=== PATIENT | female | born 1940 | race Caucasian/White ===

== ENCOUNTER 2016-04-21 11:00 | Inpatient (IN) | payer MEDICARE, OTHER ==
[~2016-04-21] VITALS: Ht 157.5 cm; Wt 78.7 kg
--- NOTE | ~2016-04-21 | OR ---
PATIENT'S NAME: MELANIE HUBBARD [facility] AGE: 75 Y [address] ROOM: [address] [address] LOCATION: [facility] ADMIT DATE: 05/05/2016 OR/Procedure Report DISCHARGE DATE: FAMILY PHYSICIAN: Yady De Los Santos MD ATTENDING PHYSICIAN: STACIA CRESPO SURGEON: Stacia Crespo MD DIE TROUBLE SHOOTER: 1. MAYTE Mccray. 2. Stacia Mata. DATE OF PROCEDURE: 05/05/2016 PREOPERATIVE DIAGNOSES: 1. Right knee degenerative joint disease (primary osteoarthritis). 2. Severe preoperative flexion contracture. POSTOPERATIVE DIAGNOSES: 1. Right knee degenerative joint disease (primary osteoarthritis). 2. Severe preoperative flexion contracture. OPERATION: Right total knee arthroplasty with computer navigation. ANESTHESIA: Spinal anesthesia plus adductor canal block plus periarticular local anesthesia (ropivacaine with epinephrine and Toradol). ESTIMATED BLOOD LOSS: Less than 10 mL. DRAIN: None. SPECIMEN: None. COMPLICATIONS: None. IMPLANT SYSTEM: Balko Triathlon. 1. Size 4 right posterior stabilized femoral component. 2. Size 3 universal modular tibial baseplate. 3. A 9 mm posterior stabilized size 3 X3 tibial polyethylene insert. 4. A 29 mm oval X3 patella component. INDICATIONS FOR SURGERY: Ms. Melanie Hubbard is a 75-year-old female who presents with advanced right knee degenerative joint disease and associated severely compromised activities of daily living. The patient has decided to proceed with knee replacement after having been thoroughly counseled regarding the associated risks, benefits, and limitations. We have specifically reviewed the risks and implications of infection, deep venous thrombosis, pulmonary embolism, mortality, neurovascular complications, blood transfusion (and associated potential for disease transmission or transfusion reaction), PATIENT'S NAME: MELANIE HUBBARD [facility] AGE: 75 Y [address] ROOM: [address] [address] LOCATION: [facility] ADMIT DATE: 05/05/2016 OR/Procedure Report DISCHARGE DATE: FAMILY PHYSICIAN: Yady De Los Santos MD ATTENDING PHYSICIAN: STACIA CRESPO stiffness, instability, mechanical deterioration of the components (due to wear and or loosening), and the potential need for revision. We have also emphasized the importance of active involvement and compliance with post- operative physical therapy as a means of optimizing range of motion and functional recovery. Informed consent has been granted. DESCRIPTION OF PROCEDURE: The patient was positioned supine after administration of anesthesia and prophylactic antibiotics. A well-padded pneumatic tourniquet was placed around the right proximal thigh, and the right lower extremity was prepped and draped with vigilant sterile technique. The patient's name as well as the intended operative side and procedure were confirmed with a verbal time-out involving myself, the circulating nurse, the scrub nurse, and the anesthesiologist. Examination under anesthesia demonstrated no active skin lesions or masses. There was a prominent flexion contracture. There were no significant preexisting scars. There was a mild effusion. There was no erythema. There was no abnormal warmth. Range of motion under anesthesia was from a 20-degree flexion contracture to 120 degrees of flexion. There was no ligamentous insufficiency. The right lower extremity was elevated and exsanguinated with an Esmarch wrap, and the pneumatic tourniquet was inflated to 300mmHg. The knee was approached through a longitudinal midline incision. A medial parapatellar arthrotomy was performed and the patella was everted. Examination of the joint space demonstrated no effusion. There were adhesions in the lateral gutter. There were moderate-sized osteophytes at the intercondylar notch. There were no loose bodies. The cruciate ligaments were intact. There was a large osteophyte at the lateral margin of the patella. There were moderate-sized osteophytes at the superior and inferior margins of the patella. There was full-thickness loss of articular cartilage throughout the lateral 75% of the patella and femoral trochlea articular surfaces with associated longitudinal linear erosions in the subchondral bone yielding a corduroy appearance at the lateral 75% of the patella and femoral trochlea. There were small osteophytes at the medial and lateral femoral condyles. There was a 2 x 3 cm diameter region of high-grade partial-thickness articular cartilage loss at the central aspect of the medial femoral condyle and a 2 cm diameter region of high-grade partial-thickness articular cartilage loss (with associated deep fissuring) at the central aspect of the lateral femoral condyle. There were moderate grade 3 degenerative changes at the medial two-thirds of the lateral tibial plateau. There were moderate grade 3 degenerative changes at the medial tibial plateau. There was moderate inner perimeter tearing of the medial meniscus and mild inner perimeter tearing of the lateral meniscus. PATIENT'S NAME: MELANIE HUBBARD [facility] AGE: 75 Y [address] ROOM: [address] [address] LOCATION: [facility] ADMIT DATE: 05/05/2016 OR/Procedure Report DISCHARGE DATE: FAMILY PHYSICIAN: Yady De Los Santos MD ATTENDING PHYSICIAN: STACIA CRESPO Remnants of the menisci and cruciate ligaments were excised. The [employer] computer navigation femoral tracker was pinned in place at the distal aspect of the femoral trochlea. Absence of motion between the femur and the tracking device was confirmed manually and visually. Femoral osseous landmarks were obtained in order to calibrate the computer navigation system. Landmarks included the center of rotation of the ipsilateral hip, the center-point of the distal femur, the femoral AP axis, 57 points on the medial femoral condyle articular surface, and 57 points on the lateral femoral condyle articular surface. The [employer] computer navigation system was subsequently utilized to position the distal femoral resection block such that the distal femoral resection was performed perfectly perpendicular to the femoral mechanical axis. The distal femoral resection was performed with a Fidbacks oscillating saw. The [employer] computer navigation tibial tracker was pinned in place at the anterior aspect of the tibial plateau. Absence of motion between the tibia and the tracking device was confirmed manually and visually. Tibial osseous landmarks were obtained in order to calibrate the computer navigation system. Landmarks included the center-point of the tibial plateau, the AP tibial axis, 57 points on the medial tibial plateau articular surface, 57 points on the lateral tibial plateau articular surface, the medial malleolus, and the lateral malleolus. The [employer] computer navigation system was subsequently utilized to position the proximal tibial resection block such that the proximal tibial resection was performed perfectly perpendicular to the tibial mechanical axis. The proximal tibial resection was performed with a OnKure Precision oscillating saw. Perpendicularity of the tibial resection with respect to the tibial shaft axis was reconfirmed by inserting a spacer- block attached to an extramedullary guide adolfo. External rotation of the anterior and posterior femoral resections was set parallel to the epicondylar axis and carefully adjusted in order to create a rectangular flexion gap. The box resection was performed with a reciprocating saw. Anterior and posterior chamfer resections were performed with the oscillating saw. Posterior condyle osteophytes were excised with an osteotome. All other osteophytes were excised with a rongeur. Resection of all remnants of the menisci was reconfirmed. Flexion and extension gaps were confirmed to be symmetric and well balanced with a spacer-block technique. The patella resection was performed with an oscillating saw such that the composite thickness of the reconstructed patella was equivalent to the thickness of the port gamble patella. Patella tracking was confirmed to be optimal. A lateral retinacular release was required in order to optimize patella tracking. All trial components were removed and all prepared osseous surfaces were PATIENT'S NAME: MELANIE HUBBARD [facility] AGE: 75 Y [address] ROOM: [address] [address] LOCATION: [facility] ADMIT DATE: 05/05/2016 OR/Procedure Report DISCHARGE DATE: FAMILY PHYSICIAN: Yady De Los Santos MD ATTENDING PHYSICIAN: STACIA CRESPO thoroughly irrigated with pulsatile saline lavage and dried prior to cementing all three components in a single stage using OnKure Simplex cement containing pre-mixed tobramycin. All extruded excess cement was removed. The entire joint space was thoroughly inspected and thoroughly irrigated with bacteriostatic pulsatile saline lavage to assure that there was no residual debris of any sort. Final range of motion was from full extension (with no passive hyperextension) to 130 degrees of flexion. Patella tracking was reconfirmed to be optimal. There was excellent anteroposterior stability at 90 degrees of flexion. There was less than 1 mm of medial lift-off to valgus stress in full extension. There was less than 1 mm of lateral lift-off to varus stress in full extension. The arthrotomy was closed with multiple simple and [id number] interrupted #1 Vicryl. Subcutaneous tissues were thoroughly re-irrigated with bacteriostatic pulsatile saline lavage. Subcutaneous tissues were re- approximated with simple buried interrupted #0 Vicryl sutures. The skin was closed with simple buried interrupted 2-0 Vicryl sutures followed by surgical tanvi. The dressing consisted of Xeroform gauze, 4x4 gauze, ABD pads and two 6-inch Frank Wraps. There were no intra-operative complications. MD ROMINA HUNG/modl /[id number] d: 05/05/16 1555 t: 05/12/16 2114, OPERATIVE SUMMARY
--- NOTE | ~2016-04-21 | DS ---
PATIENT'S NAME: YAHAIRA HUBBARD [facility] AGE: 75 Y [address] ROOM: [place] [address] LOCATION: [facility] ADMIT DATE: 05/05/2016 Discharge Summary DISCHARGE DATE: 05/07/2016 FAMILY PHYSICIAN: Yady De Los Santos MD ATTENDING PHYSICIAN: Stacia Crespo PRIMARY DIAGNOSIS: Degenerative joint disease of the right knee. SECONDARY DIAGNOSES: 1. Essential hypertension. 2. Urinary stress incontinence. 3. Lumbar spinal stenosis. 4. Chronic depression. 5. Obstructive sleep apnea on CPAP. 6. Hypercholesterolemia. PROCEDURE PERFORMED: Right total knee arthroplasty. HISTORY: The patient is a 75-year-old female, who presents with advanced right knee degenerative joint disease and associated severely compromised activities of daily living. The patient has decided to proceed with total knee arthroplasty after having been thoroughly counseled regarding the risks, benefits, limitations and alternatives. Please refer to the outpatient clinic notes and admission history and physical for this patient. HOSPITAL COURSE: The patient underwent a right total knee arthroplasty on 05/05/2016 without complications. Spinal anesthesia plus adductor canal block plus periarticular local anesthesia was utilized. The patient received 24 hours of perioperative prophylactic antibiotics and remained hemodynamically stable, neurovascularly intact throughout the entire hospital course. The postoperative prophylactic deep venous thrombosis prophylaxis consisted of Xarelto, early mobilization and pneumatic compression devices. Daily physical therapy for gait training, transfer training range of motion and quadriceps isometric exercises were received. The patient progressed well in physical therapy. On the date of discharge, 05/07/2016, the incision at the knee was healing well and showed no signs of infection. DISPOSITION: Home. DISCHARGE ACTIVITY: The patient is to bear weight as tolerated with range of motion and quadriceps isometric exercises as instructed. The operative extremity is to be elevated at least 90% of the day. There is to be sterile 4x4 gauze dressings to the incision daily. Dr. Crespo is to be notified immediately if there is any increased pain, fevers, chills erythema or drainage. PATIENT'S NAME: YAHAIRA HUBBARD [facility] AGE: 75 Y [address] ROOM: [place] [address] LOCATION: [facility] ADMIT DATE: 05/05/2016 Discharge Summary DISCHARGE DATE: 05/07/2016 FAMILY PHYSICIAN: Yady De Los Santos MD ATTENDING PHYSICIAN: Stacia Crespo DISCHARGE MEDICATIONS: 1. Xarelto 10 mg 1 tablet p.o. daily for 12 days for postoperative DVT prophylaxis. 2. Hydromorphone 2 mg 1 to 2 tablets p.o. every 4 hours p.r.n. for pain. DISCHARGE INSTRUCTIONS: She is then instructed to continue all her other preadmission medications as instructed by her Internal Medicine doctor. FOLLOWUP: Followup appointment is to be with Dr. Crespo's office on 05/12/2016 for her initial postoperative evaluation with x-rays of the knee and for staple removal. GALDINO KIRK PA-C FOR STACIA CRESPO MD SMW/modl /[id number] d: 05/19/16 0421 t: 05/19/16 0911, DISCHARGE SUMMARY
--- NOTE | ~2016-04-21 | PUL ---
PATIENT'S NAME: YAHAIRA HUBBARD [facility] AGE: 75 Y [address] ROOM: [address] [address] LOCATION: [facility] ADMIT DATE: 05/05/2016 Pulmonary DISCHARGE DATE: 05/07/2016 FAMILY PHYSICIAN: Yady De Los Santos MD ATTENDING PHYSICIAN: Skinny Calle NAME OF PROCEDURE: Overnight Pulse Oximetry DATE OF PROCEDURE: May 06 to May 07, 2016 REASON FOR EXAM: Nocturnal hypoxemia RESULTS: The test was started on room air and CPAP and supplemental oxygen was added approximately 2 hours and half into the study. The recording time was 9 hours, 28 minutes, and 08 seconds, with a total valid sampling time of 9 hours, 11 minutes, and 44 seconds. The highest pulse was 90, lowest pulse was 53, with a mean pulse of 61. The highest SpO2 was 98%, lowest SpO2 was 67%, with a mean SpO2 of 88.3%. The patient spent 4 hours, 30 minutes, and 12 seconds with SpO2 less than 89%, representing 49% of the total sleep time. The desaturation event index was elevated at 21.4. PHYSICIAN INTERPRETATION: The patient has evidence of significant nocturnal hypoxia and would qualify for supplemental oxygen as per Medicare criteria. MD COLIN SNOWDEN/kilo /[id number] dtt: 05/11/16 1453 , BALAJI VIZCAINO dtd: 05/11/16 1352
[2016-04-21] MEDS ORDERED: COZAAR50 MG PO (12:31)
[2016-04-21] MEDS ORDERED: NORVASC5 MG PO (12:31)
[2016-04-21] MEDS ORDERED: CYMBALTA30 MG PO (12:32)
[2016-04-21] MEDS ORDERED: METOPROLOL TART25 MG PO (12:32)
[2016-04-21] MEDS ORDERED: ZOCOR20 MG PO (12:33)
[2016-04-21] MEDS ORDERED: THERAGRAN-M1 TAB PO (12:33)
[2016-04-21] MEDS ORDERED: ASPIRIN EC81 MG PO (12:34)
[2016-04-21] MEDS ORDERED: VITAMIN D1000 UNI1 PO (12:34)
[2016-04-21] MEDS ORDERED: TURMERIC500 MG PO (12:34)
[2016-04-21] MEDS ORDERED: FISH OIL 1,2001 EACH PO (12:35)
[2016-04-21] MEDS ORDERED: ASCORBIC ACID500 MG PO (12:35)
[2016-04-21] MEDS ORDERED: ALEVE220 M1 PO (12:35)
[2016-04-21] MEDS ORDERED: CPAP INH (12:35)
--- NOTE | 2016-05-05 12:49 | NUR ---
Introduced self/role to patient and . Patient reports she lives in [place] with , Moise. Has a 2-story home, 0 steps to enter home. Has walker, cane, bath seat, elevated toilet seat, hand held shower head, long shoe horn and walk in shower. Reviwed use of IS. Encouraged waving of feet. Will follow and assist as needs identified.
--- NOTE | 2016-05-05 14:10 | NUR ---
1410 Introduced self/role to patient, also present Maricruz Gordon. She lives in [place] with her Moise. She plans to return home once discharged. She had her other knee done 5 years ago and was in a lot of pain but so far this knee is going much better. She has a walker, toilet riser and railings in her home already. Her son also lives with them but he is disabled so will not be able to assist with much. She could not think of anything she would need. Added my name to her marker board, will continue to follow.
--- NOTE | 2016-05-05 17:17 | NUR ---
Significant Event: From PACU at 1020. Dressing C/D/I. Ez wrap ice at all times. Voids wihtout dififuclty. Ambulates with one assist, walker and gaitbelt o commode. Dilaudid 2mg and Tylenol 1000mg last at 1700. Remains on 2L 02. Follow up:
--- NOTE | 2016-05-06 05:00 | NUR ---
POD#1 RIGHT TKA, SURGICAL DSG CDI, GOOD CSMS, PAIN CONTROLLED WITH DILAUDID LD@2030 AND WITH SCHEDULED TYLENOL AND WILL REASSESS BEFORE SHIFT CHANGE. VS WNL, CPAP OVERNIGHT W/3L OF O2, DAMON MIDLINE IV SALINE LOCKED, UP TO BSC W/1 ASSIST/FWW AND GAIT BELT AND DID WELL. GOOD PO INTAKE/OUTPUT THIS SHIFT, NO BM THIS SHIFT. PLAN TO DC HOME ON DISCHARGE WITH SPOUSE.
--- NOTE | 2016-05-06 10:31 | NUR ---
[id number] [facility] Student Nurse, Monitored assessment, medication administration and documentation
--- NOTE | 2016-05-06 14:56 | NUR ---
Significant Event: pt alert and oriented. up in the room with 1 assist. uses dilaudid for pain will update you with last dose. voids well. no bm. unable to wean off 02. 88 on room air. will be discharged probably tomorrow. unsure of 02 needs upon discharge Follow up:
--- NOTE | 2016-05-07 04:46 | NUR ---
Significant Event: Dressing is clean, dry and intact. CSM WNL. Voids without difficulty. 1 assist with transfers. Last Dilaudid at 0226. On an overnight trend ox. Respiratory therapy placed patient on 1 L of oxygen with CPAP. Possilbe dismissal. Follow up:
[2016-05-07] MEDS ORDERED: TYLENOL EXTRA500 MG PO (10:21)
[2016-05-07] MEDS ORDERED: COLACE100 MG PO (10:22)
[2016-05-07] MEDS ORDERED: MIRALAX17 GM PO (10:24)
[2016-05-07] MEDS ORDERED: XARELTO10 MG PO (10:25)
[2016-05-07] MEDS ORDERED: DILAUDID 2MG(HYD2 MG PO (10:27)
--- NOTE | 2016-05-07 16:52 | NUR ---
Significant Event: Ambulates with SBA and walker. Dressing changed, tanvi intact. Ez wrap ice at all times. Titrated to room air this morning. Dialudid 2 mg for pain control. Voids without difficulty. Alex education given with dismissal instructions, patient and state understanding. IV d/cd. Dismissed to home with . Follow up:
== END 2016-05-07 16:50 | disposition disaster alternative care site (69) | DRG 470 ==
LOC: G3N 05-05 05:18
PROVIDERS: ADMIT Orthopaedic Surgery
PROC: 0SRC0J9 Replacement of Right Knee Joint with Synthetic Substitute, Cemented, Open Approach (ICD-10-PCS; principal; 2016-05-05)
DX: M17.11 Unilateral primary osteoarthritis, right knee (principal); Z99.81 Dependence on supplemental oxygen; I10 Essential (primary) hypertension; R32 Unspecified urinary incontinence; M48.06 Spinal stenosis, lumbar region; F32.9 Major depressive disorder, single episode, unspecified; G47.33 Obstructive sleep apnea (adult) (pediatric); E78.00 Pure hypercholesterolemia, unspecified
CPT/HCPCS: C1713; C1751; C1776; J0690; J1100; J1885; J2001; J2250; J2405; J2795; J7120

== ENCOUNTER 2016-05-09 04:49 | Emergency (ER) | payer MEDICARE, OTHER ==
--- NOTE | ~2016-05-09 | ER ---
PATIENT'S NAME: YAHAIRA HUBBARD [facility] AGE: 75 Y [address] ROOM: [place] [address] LOCATION: ED ADMIT DATE: 05/09/2016 ER/Outpatient Report DISCHARGE DATE: FAMILY PHYSICIAN: Yady De Los Santos MD ATTENDING PHYSICIAN: Kevin Rice Admission date and time documented in medical record. I saw the patient at 0500 hours. CHIEF COMPLAINT: Right knee pain. HISTORY OF PRESENT ILLNESS: The patient is a 75-year-old female, who had right total knee arthroplasty Wednesday. Over the past 24 hours, she has had increasing pain in the right knee. Had a little bit of swelling, not any more than she did have postop. No fever, chills, sweats. No rigors. No lightheadedness, dizziness, syncope, or near syncope. No fall or trauma. No headache, eyes, ears, nose, throat, neck, or spine pain. No chest pain, shortness of breath. No abdominal pain, nausea, vomiting, diarrhea. No urinary symptoms although she just got over urinary tract infection. No other joint muscle swelling, redness, or pain. No skin eruptions or rash. Has had some problems with depression. No neuro changes, endocrine problems. HOME MEDICATIONS: See attached medication list. The patient is taking Dilaudid 2 mg every 4 to 6 hours as needed for pain. Prior to admission to the emergency room, she took 2 mg at midnight and another 2 mg 30 minutes later. Still having pain on arrival here. Rates it 10/15. ALLERGIES: SULFA. SOCIAL HISTORY: Nonsmoker, occasional intake of alcohol. SIGNIFICANT PAST MEDICAL HISTORY: Dyslipidemia, hypertension, degenerative joint disease, degenerative osteoarthritis, depression, stress incontinence, obstructive sleep apnea. OPERATIONS: Colonoscopy, breast biopsy, , bilateral total knee arthroplasty, hysterectomy, bladder suspension, cholecystectomy, left foot surgery, and carpal tunnel release. PATIENT'S NAME: YAHAIRA HUBBARD [facility] AGE: 75 Y [address] ROOM: [place] [address] LOCATION: ED ADMIT DATE: 05/09/2016 ER/Outpatient Report DISCHARGE DATE: FAMILY PHYSICIAN: Yady De Los Santos MD ATTENDING PHYSICIAN: Kevin Rice REVIEW OF SYSTEMS: All systems reviewed by me are negative with the exception of those discussed in the history of present illness. PHYSICAL EXAMINATION: VITAL SIGNS: Temperature 98.2 and tympanic, pulse 79, respirations 16, blood pressure 186/87, O2 saturation on room air is 94%. HEENT: Negative. LUNGS: Clear. HEART: Regular. ABDOMEN: Soft and nontender. Good bowel tones. EXTREMITIES: The patient has incision. Eleonora are intact. Incision is healed. No drainage. No redness. No fluctuation. No excessive swelling of the knee more than postop. VASCULAR: Intact. NEURO: Intact. LABORATORY DATA: Urine was clear. White count is 10,200, 74 segs, 14 lymphs, 8 monos, 3 eos. Hemoglobin was 8.5, hematocrit 26.5, platelet count 299,000. IMPRESSION: 1. Right knee pain. Three day postop. Total knee arthroplasty. 2. Anemia, postop with a hemoglobin 8.5, hematocrit 26.5. 3. Hypertension. 4. History of degenerative joint disease. 5. History of degenerative osteoarthritis. PLAN: The patient is discharged home. We did give her morphine 10 and Phenergan 50 IM prior to dismissal. Continue present home medications and care. Continue Dilaudid 2 to 4 mg every 4 to 6 hours as needed for pain. Zofran 4 mg tablets one every 4 to 6 hours needed for nausea and vomiting, #12 with 1 refill. Follow up with Dr. Calle, orthopedic surgeon as needed or as scheduled. Call if any other changes occur. The patient understands. KEVIN RICE MD SDS/modl /[id number] d: 05/09/16630 t: 05/09/16 181, OUTPATIENT REPORT
[~2016-05-09 04:49] MED LIST: ALEVE220 M1 PO; ASCORBIC ACID500 MG PO; ASPIRIN EC81 MG PO; COLACE100 MG PO; COZAAR50 MG PO; CPAP INH; CYMBALTA30 MG PO; DILAUDID 2MG(HYD2 MG PO; FISH OIL 1,2001 EACH PO; METOPROLOL TART25 MG PO; MIRALAX17 GM PO; NORVASC5 MG PO; THERAGRAN-M1 TAB PO; TURMERIC500 MG PO; TYLENOL EXTRA500 MG PO; VITAMIN D1000 UNI1 PO; XARELTO10 MG PO; ZOCOR20 MG PO
[2016-05-09 05:32] LABS: BILIRUBIN URINE NEGATIVE (NEGATIVE); BLOOD URINE NEGATIVE /UL (NEGATIVE); COLOR URINE YELLOW (YELLOW); GLUCOSE URINE NEGATIVE (NEGATIVE); KETONE URINE NEGATIVE (NEGATIVE); LEUKOCYTES URINE NEGATIVE /UL (NEGATIVE); NITRITE URINE NEGATIVE (NEGATIVE); PROTEIN URINE NEGATIVE (NEGATIVE); TURBIDITY URINE CLEAR (CLEAR); UROBILINOGEN URINE NORMAL (NORMAL)
[2016-05-09 05:45] LABS: BASOPHIL % 0.3 %; EOSINOPHIL # 0.3 K/uL (0.0-0.5); EOSINOPHIL % 2.6 %; HEMATOCRIT 26.5 % (33.0-46.0); HEMOGLOBIN 8.5 g/dL (10.0-15.0); IMMATURE GRANULOCYTE % 0.4 %; LYMPHOCYTE # 1.5 K/uL (0.8-4.0); LYMPHOCYTE % 14.4 %; MCH 28.6 pg (27.0-34.0); MCHC 32.1 gm/dL (32.0-36.5); MCV 89.2 fl (83.0-98.0); MONOCYTE # 0.9 K/uL (0.0-1.0); MONOCYTE % 8.4 %; MPV 9.2 fl (9.4-12.4); NEUTROPHIL # (ANC) 7.5 K/uL (1.8-7.8); NEUTROPHIL % 73.9 %; NRBC % 0 /100WBC (0-0.00); PLATELET COUNT 299 K/uL (150-450); RBC 2.97 M/uL (3.50-5.50); RDW-CV 13.3 % (11.9-14.6); WBC 10.2 K/uL (4.0-11.0)
== END 2016-05-09 06:35 | disposition disaster alternative care site (69) ==
LOC: GMED 04:49
PROVIDERS: Emergency Medicine
PROC: 0T9B70Z Drainage of Bladder with Drainage Device, Via Natural or Artificial Opening (ICD-10-PCS; principal; 2016-05-09)
DX: G89.18 Other acute postprocedural pain (principal); M25.561 Pain in right knee; D64.9 Anemia, unspecified; I10 Essential (primary) hypertension; M19.90 Unspecified osteoarthritis, unspecified site; Z90.49 Acquired absence of other specified parts of digestive tract; Z90.710 Acquired absence of both cervix and uterus
CPT/HCPCS: J2270; J2550

== ENCOUNTER → 2016-06-10 | Outpatient (CLI) | payer MEDICARE, OTHER ==
--- NOTE | ~2016-06-10 | ENPV ---
Vascular Lower Extremities DVT Study Procedure Demographics Patient Name YAHAIRA HUBBARD Date of Study 06/10/2016 Patient Number [id number] Gender Female Date of 1940 Age 75 Visit Number [id number] Height Accession Number [id number] Weight Room Number BSA BMI Referring Luc Rivera MD Interpreting Giovanni Chaudhry MD Physician Magali Rivera MD Physician Physician Ordering Physician Luc Ames MD Field Kiln Burner Johnie Hollingsworth T, [facility] Kishan King T, [facility] Conclusions Summary Normal venous duplex examination of the legs bilaterally with normal venous Doppler signals noted throughout. No evidence of thrombophlebitis is noted bilaterally in the deep and superficial veins of the legs. Procedure Type of Study: Veins:Lower Extremities DVT Study, Lower Extremity Right. Indications for Study:Pain in Limb and Swelling of Limb. Appropriate Use Criteria:9 Patient Status:Routine. Study Location:Vascular Lab. Technical Quality:Adequate visualization. - Preliminary reported to:Hilda. Velocities are measured in cm/s ; Diameters are measured in cm Right Lower Extremities DVT Study Measurements Right 2D and Doppler Measurements + + + + +------+------+ + !Location !Visualized!Compressibility!Thrombosis!Signal!Reflux!Reflux ! ! ! ! ! ! ! !(sec) ! + + + + +------+------+ + !GSV Thigh !Yes !Yes !None !Phasic! ! ! + + + + +------+------+ + !Common !Yes !Yes !None !Phasic! ! ! !Femoral ! ! ! ! ! ! ! + + + + +------+------+ + !Prox !Yes !Yes !None !Phasic! ! ! !Femoral ! ! ! ! ! ! ! + + + + +------+------+ + !Mid Femoral!Yes !Yes !None ! ! ! ! + + + + +------+------+ + !Dist !Yes !Yes !None !Phasic! ! ! !Femoral ! ! ! ! ! ! ! + + + + +------+------+ + !Popliteal !Yes !Yes !None !Phasic! ! ! + + + + +------+------+ + !Gastroc !Yes !Yes !None ! ! ! ! + + + + +------+------+ + !PTV !Yes !Yes !None ! ! ! ! + + + + +------+------+ + !Peroneal !Yes !Yes !None ! ! ! ! + + + + +------+------+ + Left Lower Extremities DVT Study Measurements Left 2D and Doppler Measurements + + + + +------+------+ + !Location !Visualized!Compressibility!Thrombosis!Signal!Reflux!Reflux ! ! ! ! ! ! ! !(sec) ! + + + + +------+------+ + !GSV Thigh !Yes !Yes !None !Phasic! ! ! + + + + +------+------+ + !Common !Yes !Yes !None !Phasic! ! ! !Femoral ! ! ! ! ! ! ! + + + + +------+------+ + !Prox !Yes !Yes !None !Phasic! ! ! !Femoral ! ! ! ! ! ! ! + + + + +------+------+ + !Mid Femoral!Yes !Yes !None ! ! ! ! + + + + +------+------+ + !Dist !Yes !Yes !None !Phasic! ! ! !Femoral ! ! ! ! ! ! ! + + + + +------+------+ + !Popliteal !Yes !Yes !None !Phasic! ! ! + + + + +------+------+ + !Gastroc !Yes !Yes !None ! ! ! ! + + + + +------+------+ + !PTV !Yes !Yes !None ! ! ! ! + + + + +------+------+ + !Peroneal !Yes !Yes !None ! ! ! ! + + + + +------+------+ + Signature dtt: dtletitia: 06/10/16 0943 Physician Self Edletty
== END | disposition disaster alternative care site (69) ==
LOC: GCAR 09:30
DX: M79.661 Pain in right lower leg (principal); M79.89 Other specified soft tissue disorders; Z96.651 Presence of right artificial knee joint